=== PATIENT | female | born 1965 | race African-American/Black ===

== ENCOUNTER 2017-01-19 23:06 | Emergency (ER) | payer OTHER ==
--- NOTE | 2017-01-19 23:45 | PDOC ---
History of Present Illness - General History Source: Patient Exam Limitations: No Limitations - History of Present Illness Initial Comments: 01/19/17 23:47 The patient is a 51 year old female with no significant past medical history who presents to the ED with 2 days of cold-like symptoms. Patient reports she developed a headache yesterday with some rhinorrhea. Earlier today she developed a cough with chills. She states taking tylenol with no improvement. Patient lives home with her nephew who is also ill with similar symptoms. The patient denies fever, SOB, chest pain, abdominal pain, nausea, vomiting, and diarrhea. Allergies: NKDA Social History: No alcohol, tobacco, or drug use reported. Past Surgical History: None reported PCP: None reported <Magda Rao - Last Filed: 01/19/17 23:47> - General History Source: Patient <Christopher Carreon - Last Filed: 01/20/17 01:01> - General Chief Complaint: Cold Symptoms Stated Complaint: COLD SYMPTOMS Time Seen by Provider: 01/19/17 23:31 Past History <Magda Rao - Last Filed: 01/19/17 23:47> - Psycho/Social/Smoking Cessation Hx Suicidal Ideation: No Smoking History: Never smoked Have you smoked in the past 12 months: No Information on smoking cessation initiated: No Hx Alcohol Use: No Drug/Substance Use Hx: No <Christopher Carreon - Last Filed: 01/20/17 01:01> - Past Medical History Allergies/Adverse Reactions: Allergies Allergy/AdvReac Type Severity Reaction Status Date / Time No Known Allergies Allergy Verified 01/19/17 23:24 Home Medications: Ambulatory Orders Oseltamivir Phosphate [Tamiflu] 75 mg PO BID #10 capsule 01/20/17 Review of Systems - Review of Systems Able to Perform ROS?: Yes Comments:: 01/19/17 23:47 CONSTITUTIONAL: +chills Absent: fever, no fatigue EYES: Absent: visual changes ENT: +rhinorrhea Absent: ear pain, no sore throat CARDIOVASCULAR: Absent: chest pain, no palpitations RESPIRATORY: +cough Absent: no SOB GI: Absent: abdominal pain, no nausea, no vomiting, no constipation, no diarrhea GENITOURINARY: Absent: dysuria, no frequency, no hematuria MUSKULOSKELETAL: Absent: back pain, no arthralgia, no myalgia SKIN: Absent: rash NEURO: +headache <Magda Rao - Last Filed: 01/19/17 23:47> *Physical Exam - Vital Signs Last Vital Signs Temp Pulse Resp BP Pulse Ox 98.6 F 109 H 20 117/86 99 01/19/17 23:24 01/19/17 23:24 01/19/17 23:24 01/19/17 23:24 01/19/17 23:24 - Physical Exam Comments: 01/19/17 23:48 GENERAL: Well-appearing, well-nourished. No apparent distress. HEENT: Normocephalic, atraumatic. PERRL, EOM intact. CARDIOVASCULAR: Normal S1, S2. Regular rate and rhythm. PULMONARY: Clear to auscultation bilaterally. ABDOMEN: Soft, non-distended, non-tender. EXTREMITIES: Normal ROM in all four extremities. No gross deformities. SKIN: Warm, dry. No rash NEUROLOGICAL: No focal neurological deficits. <Magda Rao - Last Filed: 01/19/17 23:47> - Vital Signs Last Vital Signs Temp Pulse Resp BP Pulse Ox 98.6 F 109 H 20 117/86 99 01/19/17 23:24 01/19/17 23:24 01/19/17 23:24 01/19/17 23:24 01/19/17 23:24 <Christopher Carreon - Last Filed: 01/20/17 01:01> Medical Decision Making - Medical Decision Making 01/20/17 00:59 Dr. Carreon: The scribe's documentation has been prepared under my direction and personally reviewed by me in its entirery. I confirm that the note above accurately reflects all work, treatment, procedures, and medical decision making performed by me. <Christopher Carreon - Last Filed: 01/20/17 01:01> *DC/Admit/Observation/Transfer - Attestations Scribe Attestion: 01/19/17 23:48 Documentation prepared by Magda Rao, acting as medical claims representative for Christopher Carreon MD <Magda Rao - Last Filed: 01/19/17 23:47> - Discharge Dispostion Admit: No <Christopher Carreon - Last Filed: 01/20/17 01:01> Diagnosis at time of Disposition: Influenza A - Discharge Dispostion Disposition: HOME Condition at time of disposition: Stable - Prescriptions Prescriptions: Oseltamivir Phosphate [Tamiflu] 75 mg PO TID #7 capsule - Patient Instructions Printed Discharge Instructions: DI for Influenza -- Adult - Post Discharge Activity Work/School Note: Back to Work
[2017-01-19 23:55] VITALS: BP 117/86; PULSE 109; TEMP 98.6; BMI 32.5
[2017-01-20] MEDS ORDERED: OSELTAMIVIR PHOSPHATE 75 MG CAPSULE PO ONE (00:57)
[2017-01-20] MEDS ORDERED: OSELTAMIVIR PHOSPHATE 75 MG CAPSULE ONE (00:59)
== END 2017-01-20 01:10 | disposition home or self-care (01) ==
LOC: JER 23:06
DX: J09.X2 Influenza due to identified novel influenza A virus with other respiratory manifestations (principal)
CPT/HCPCS: 87804; 99281-25

== ENCOUNTER 2017-02-28 07:34 | Emergency (ER) | payer OTHER ==
[2017-02-28 08:29] VITALS: BMI 33.7
--- NOTE | 2017-02-28 08:36 | PDOC ---
History of Present Illness - General Chief Complaint: Pain, Acute Stated Complaint: LEFT SIDE PAIN Time Seen by Provider: 02/28/17 08:35 - History of Present Illness Initial Comments: 02/28/17 08:57 The pt is a 51 year old female with no significant PMH who presents to ED complaining of left flank pain for 3 days. The pain started suddenly, it is intermittent, ranging from 0/10 TO 7/10, associated with movement, rotation of torso and lying flat. She recently started physical exercise after shoulder surgery she had several months ago. She denies hematuria, dysuria, N/V, diarrhea , constipation, melena. She denies chest pain, SOB, palpitations. She didn't take any pain medications. She denies fever, chills. Past History - Past Medical History Allergies/Adverse Reactions: Allergies Allergy/AdvReac Type Severity Reaction Status Date / Time No Known Allergies Allergy Verified 02/28/17 07:39 Home Medications: Ambulatory Orders NK [No Known Home Medication] 02/28/17 - Psycho/Social/Smoking Cessation Hx Suicidal Ideation: No Smoking History: Never smoked Have you smoked in the past 12 months: No Information on smoking cessation initiated: No Hx Alcohol Use: No Drug/Substance Use Hx: No Review of Systems - Review of Systems Able to Perform ROS?: Yes Comments:: 02/28/17 09:04 REVIEW OF SYSTEMS CONSTITUTIONAL: Absent: fever, chills, diaphoresis, generalized weakness, malaise, loss of appetite, weight change HEENT: Absent: rhinorrhea, nasal congestion, throat pain, throat swelling, difficulty swallowing, mouth swelling, ear pain, eye pain, visual changes CARDIOVASCULAR: Absent: chest pain, syncope, palpitations, irregular heart rate, lightheadedness , peripheral edema RESPIRATORY: Absent: cough, shortness of breath, dyspnea with exertion, orthopnea, wheezing, stridor, hemoptysis GASTROINTESTINAL: Absent: abdominal pain, abdominal distension, nausea, vomiting, diarrhea, constipation, melena, hematochezia GENITOURINARY: Absent: dysuria, frequency, urgency, hesitancy, hematuria, flank pain, genital pain MUSCULOSKELETAL: left flank pain Absent: arthralgia, joint swelling, neck pain SKIN: Absent: rash, itching, pallor NEUROLOGIC: Absent: headache, focal weakness or paresthesias, dizziness, unsteady gait, seizure, mental status changes, bladder or bowel incontinence PSYCHIATRIC: Absent: anxiety, depression Is the patient limited Bulgarian proficient: No *Physical Exam - Vital Signs Last Vital Signs Temp Pulse Resp BP Pulse Ox 69 18 126/78 98 02/28/17 07:36 02/28/17 07:36 02/28/17 07:36 02/28/17 07:36 - Physical Exam Comments: 02/28/17 09:06 GENERAL: The patient is awake, alert, and fully oriented, in no acute distress. HEAD: Normal with no signs of trauma. EYES: PERRL, extraocular movements intact, sclera anicteric, conjunctiva clear. No ptosis. ENT: Ears normal, nares patent, oropharynx clear without exudates, moist mucous membranes. NECK: Trachea midline, full range of motion, supple. LUNGS: Breath sounds equal, clear to auscultation bilaterally, no wheezes, no crackles, no accessory muscle use. HEART: Regular rate and rhythm, S1, S2 without murmur, rub or gallop. ABDOMEN: Soft, nontender, nondistended, normoactive bowel sounds, no guarding, no rebound, no point tenderness but mild tenderness over left flank when rotated to the left. EXTREMITIES: 2+ pulses, warm, well-perfused, no edema. NEUROLOGICAL: Cranial nerves II through XII grossly intact. Normal speech, gait not observed. PSYCH: Normal mood, normal affect. SKIN: Warm, dry, normal turgor, no rashes or lesions noted ED Treatment Course - LABORATORY CBC & Chemistry Diagram: 02/28/17 09:10 02/28/17 09:10 Medical Decision Making - Medical Decision Making 02/28/17 09:07 The pt is a 51 year old female with no PMH who presents complaining of left flank pain. Differential diagnosis include muscle strain, left nephrolithiasis, pancreatitis, pyelonephritis, pancreatitis. We ordered UA, CBC, BMP, lipase, EKG. 02/28/17 10:07 Laboratory test are nl, UA nl, Tylenol was ordered for pain. The pt is ready for discharge. We recommended pain medications and applying ice when needed. *DC/Admit/Observation/Transfer Diagnosis at time of Disposition: Muscle ache - Discharge Dispostion Disposition: HOME Condition at time of disposition: Good Admit: No - Referrals Referrals: Guanako,Riny [Primary Care Provider] - - Patient Instructions Additional Instructions: Please take pain medication when you need it. Also you may try to apply ice for pain. If your symptoms worsen come back to emergency room as soon as possible
[2017-02-28 09:21] LABS: MCH 26.3 pg (25.7-33.7); MCHC 31.8 g/dl (32.0-36.0); MEAN CELL VOLUME 82.5 fl (80-96); MEAN PLT VOLUME 8.5 fl (7.5-11.1); PLATELET COUNT 219 K/MM3 (134-434); RDW 14.8 % (11.6-15.6); WHITE BLOOD COUNT 3.8 K/mm3 (4.0-10.0)
[2017-02-28 09:43] LABS: CALCIUM 9.2 mg/dL (8.5-10.1); CREATININE 0.6 mg/dL (0.55-1.02)
[2017-02-28 09:44] LABS: URINE APPEARANCE CLEAR; URINE BILIRUBIN NEGATIVE (NEGATIVE); URINE BLOOD NEGATIVE (NEGATIVE); URINE COLOR LTYELLOW; URINE GLUCOSE (UA) NEGATIVE (NEGATIVE); URINE KETONE NEGATIVE (NEGATIVE); URINE NITRITE NEGATIVE (NEGATIVE); URINE PROTEIN NEGATIVE (NEGATIVE); URINE UROBILINOGEN NEGATIVE E.U./dl (0.2-1.0)
--- NOTE | 2017-02-28 09:44 | PDOC ---
Attending Attestation - Resident Resident Name: Jackie Cardoza - ED Attending Attestation I have performed the following: I have examined & evaluated the patient, The case was reviewed & discussed with the resident, I agree w/resident's findings & plan - HPI HPI: 02/28/17 10:05 51y F no significant pmhx presents with L flank pain. The pt states she had sudden onset of L flank when she wa sgetting up this weekend to show her son something - pain is typically worse when she is moving/sittingup/twisting - no pain when sh eis at rest. The pt used a heating pad with good effect. Did not use any OTC pain meds - no associated sob, cp, diaphoresis, hematuria, diarrhea , numbness/tingling/weakness. On exam the pt appears well, no focal tenderness noted, labs and UA reviewed. suspect MSK caues of her pain will give tylenol, continue heating pad and supportive mangaement will dc to fu with pmd I discussed the physical exam findings, ancillary test results and final diagnoses with the patient. I answered all of the patient's questions. The patient was satisfied with the care received and felt comfortable with the discharge plan and treatment plan. The patient will call their primary care physician within 24 hours to arrange follow-up and will return to the Emergency Department with any new, persistent or worsening symptoms. - Physicial Exam PE: 03/01/17 20:06 see above - Medical Decision Making 03/01/17 20:06 see above Heart Score/ECG Review - ECG Impressions Comment:: 02/28/17 09:43 Twelve-lead EKG was performed and reviewed by me. There is normal sinus rhythm with a rate of 54 The axis is normal. The intervals are normal. There is normal R wave progression Nonspecific ST-T wave changes Impression: Nsinus bradycardia
[2017-02-28 09:53] LABS: URINE LEUK ESTERASE TRACE (NEGATIVE)
[2017-02-28] MEDS ORDERED: ACETAMINOPHEN 325 MG TABLET (FP) PO ONE (10:03)
[2017-02-28 10:05] LABS: URINE MUCUS RARE; URINE RBC <1 /hpf (0-3); URINE WBC <1 /hpf (3-5)
[2017-02-28] MEDS ORDERED: ACETAMINOPHEN 325 MG TABLET (FP) ONE (10:06)
[2017-02-28 12:39] VITALS: BP 118/73; PULSE 66
--- NOTE | 2017-03-01 17:40 | EKG ---
Test Reason : Blood Pressure : / mmHG Vent. Rate : 054 BPM Atrial Rate : 054 BPM P-R Int : 156 ms QRS Dur : 084 ms QT Int : 434 ms P-R-T Axes : 023 028 033 degrees QTc Int : 411 ms SINUS BRADYCARDIA OTHERWISE NORMAL ECG NO PREVIOUS ECGS AVAILABLE Confirmed by JEMIMA ELY MD ([id number]) on 03/01/2017 5:40:06 PM Referred By: Confirmed By:JEMIMA ELY MD
== END 2017-02-28 10:20 | disposition home or self-care (01) ==
LOC: JER 07:34
DX: M79.1 Myalgia (principal)
CPT/HCPCS: 36415; 80048; 81003; 81015; 83690; 85027; 93005; 93010; 99283-25